=== PATIENT | female | born 1970 | race Caucasian/White ===

== ENCOUNTER 2021-09-17 13:35 | Emergency (ER) | payer OTHER, SELFPAY ==
[2021-09-17 13:40] VITALS: BP 137/79; PULSE 97; RESP 18; TEMP 36.9; O2SAT 97
[2021-09-17 13:51] VITALS: BP 137/79; PULSE 97; RESP 18; TEMP 36.9; O2SAT 97
--- NOTE | 2021-09-17 14:27 | ED.NECK ---
HPI - Neck Pain/Injury General Chief Complaint: Neck Pain/Injury Stated Complaint: right shoulder and neck pain Time Seen by Provider: 09/17/21 14:11 Source: patient and RN notes reviewed Mode of arrival: ambulatory Limitations: no limitations History of Present Illness HPI Narrative: Patient presents today complaining of severe right-sided neck and shoulder pain since yesterday. Denies injury or trauma. She does report history of chronic neck and right shoulder pain with, 5 pinched nerves in my neck. She also reports intermittent numbness to the shoulder. She has tried ibuprofen without relief. She currently rates her pain 7/10. Pain increases with any movement. Patient is diabetic and states her last A1c was 12 or 13. MD complaint: neck pain Related Data Home Medications Medication Instructions Recorded Confirmed alogliptin-metformin 1 tablet PO BID 05/29/19 09/17/21 fenofibrate nanocrystallized 145 mg PO DAILY 05/29/19 09/17/21 gabapentin 900 mg PO BID 05/29/19 09/17/21 hydrochlorothiazide 12.5 mg PO DAILY 05/29/19 09/17/21 hydroxyzine HCl 25 mg PO TID 05/29/19 09/17/21 glipizide 5 mg PO BID 09/17/21 09/17/21 pravastatin 40 mg PO DAILY 09/17/21 09/17/21 umeclidinium [Incruse Ellipta] 1 inh INHALATION DAILY 09/17/21 09/17/21 Allergies Allergy/AdvReac Type Severity Reaction Status Date / Time Penicillins Allergy Intermediate Anaphylactic Verified 09/17/21 13:48 Shock Review of Systems Review of Systems: CONSTITUTIONAL: Denies body aches, fever, chills, or sweats. EYES: Denies visual changes, redness, or discharge. ENT: Denies rhinorrhea, congestion, sore throat, or otalgia. CARDIOVASCULAR: Denies chest pain, palpitations, or edema. RESPIRATORY: Denies cough or dyspnea. GASTROINTESTINAL: Denies abdominal pain, nausea, vomiting, or diarrhea. GENITOURINARY: Denies dysuria or hematuria. SKIN: Denies rash, itching, or wounds. MUSCULOSKELETAL: + Right neck and shoulder pain NEUROLOGIC: Denies headache, tingling, or weakness.+ Intermittent right shoulder numbness PSYCH: Denies depression or anxiety. FOR[facility]LY [facility] Past Medical History Medical History (Updated 09/17/21 @ 14:36 by Cathy Weeks, [facility], ) Anxiety COPD (chronic obstructive pulmonary disease) Depression Diabetes High cholesterol Surgical History Surgical History (Updated 09/17/21 @ 14:32 by Cathy Weeks, [facility], ) H/O tubal ligation Comments At time of signature, I have reviewed and agree with nursing past medical, surgical, social and family history unless otherwise noted. Please see nursing chart for further information. There is no relevant family history pertinent to the presenting complaint Exam Narrative: GENERAL: Well-appearing, well-nourished, and in moderate pain distress. HEAD: Normocephalic, atraumatic. EYES: EOMI. No redness or drainage. Conjunctivae normal. ENT: Mucous membranes pink and moist. Nares clear. No rhinorrhea. TMs normal bilaterally. Throat normal. Uvula midline. NECK: Tenderness to the right paraspinal cervical musculature. Any range of motion of the neck causes pain to the right neck. Tenderness extends to the right trapezius laterally and down to the scapular border. Patient is tender generally throughout the shoulder as well. Any range of motion of the shoulder causes severe pain that also radiates back up to the neck. Distal sensation intact. Capillary refill normal. Radial pulse normal. 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 CHEST: No respiratory distress. EXTREMITIES: No edema. SKIN: Warm, dry, no rash. Capillary refill normal. Normal skin turgor. NEURO: No focal deficits. Alert and oriented x3. Gait steady. PSYCH: Normal affect. No signs of depression or anxiety. Course Course Level of Care: Express Care Visit Vital Signs Vital signs: Vital Signs Temperature 98.5 F 09/17/21 13:40 Pulse Rate 97 09/17/21 13:40 Respiratory Rate 18 09/17/21 13:40 Blood Pressure 137/79 09/17/21 13:
== END 2021-09-17 14:40 | disposition home or self-care (01) ==
PROVIDERS: Emergency Provider Nurse Practitioner; PCP Internal Medicine
DX: M54.12 Radiculopathy, cervical region (principal); M62.838 Other muscle spasm; J44.9 Chronic obstructive pulmonary disease, unspecified; E11.9 Type 2 diabetes mellitus without complications; E78.00 Pure hypercholesterolemia, unspecified; F41.9 Anxiety disorder, unspecified
CPT/HCPCS: 99213; G0463

== ENCOUNTER 2022-01-04 18:14 | Emergency (ER) | payer OTHER, SELFPAY ==
[2022-01-04 18:28] VITALS: BP 134/66; PULSE 94; RESP 16; TEMP 37.1; O2SAT 97
--- NOTE | 2022-01-04 19:27 | ED.EAR ---
HPI - Ear Problem General Chief complaint: Ear Stated complaint: painful ears Time Seen by Provider: 01/04/22 19:27 Source: patient, RN notes reviewed and old records reviewed Mode of arrival: ambulatory Limitations: no limitations History of Present Illness HPI Narrative: 51-year-old female who presents to [facility] care with complaints of bilateral ear pain for the past 2 days, Patient states that her ears are scratchy, reports that she had a pimple in her ear about a month ago in right ear. Patient describes discomfort as burning rates pain /10. Patient denies any fevers chills or sweats or body aches. Patient has had COVID vaccinations and flu shot. Patient has some scabs noted to the external ear canal of right ear. Patient reports that she has used peroxide to her ears and she has been taking Ibuprofen. MD Complaint: ear pain Treatment prior to arrival: other (peroxide and Ibuprofen) Related Data Home Medications Medication Instructions Recorded Confirmed hydrochlorothiazide 12.5 mg tablet 12.5 mg PO DAILY 05/29/19 01/04/22 umeclidinium 62.5 mcg/actuation 1 inh inhalation DAILY 09/17/21 01/04/22 blister powder for inhalation (Incruse Ellipta) fenofibrate nanocrystallized 145 145 mg PO DAILY 01/04/22 01/04/22 mg tablet fluoxetine 40 mg capsule 40 mg PO DAILY 01/04/22 01/04/22 glipizide 10 mg tablet 10 mg PO DAILY 01/04/22 01/04/22 linagliptin 5 mg tablet (Tradjenta) 5 mg PO QAM 01/04/22 01/04/22 metformin 1,000 mg tablet 1,000 mg PO BID 01/04/22 01/04/22 pioglitazone 30 mg tablet 30 mg PO DAILY 01/04/22 01/04/22 pravastatin 40 mg tablet 40 mg PO DAILY 01/04/22 01/04/22 Allergies Allergy/AdvReac Type Severity Reaction Status Date / Time Penicillins Allergy Intermediate Anaphylactic Verified 01/04/22 18:36 Shock Review of Systems Review of Systems: CONSTITUTIONAL: Denies fever, chills, or sweats. EYES: Denies visual changes, redness, or discharge. ENT: Denies rhinorrhea, congestion, sore throat positive for bilateral ear pain, no drainage CARDIOVASCULAR: Denies chest pain, palpitations, or edema. RESPIRATORY: Denies cough or dyspnea. GASTROINTESTINAL: Denies abdominal pain, nausea, vomiting, or diarrhea. GENITOURINARY: Denies dysuria or hematuria. SKIN: Denies rash or itching. MUSCULOSKELETAL: Denies back pain, joint pain, or myalgia. NEUROLOGIC: Denies headache, numbness, or weakness. PSYCHIATRIC: Positive for history of anxiety or depression. All systems reviewed & are unremarkable except as noted in HPI and below PMFSH Past Medical History Medical History (Updated 01/06/22 @ 21:03 by Kita Fatima NP) Anxiety COPD (chronic obstructive pulmonary disease) Depression Diabetes High cholesterol Surgical History Surgical History (Updated 01/04/22 @ 19:29 by Kita Fatima NP) H/O tubal ligation History of back surgery X2 Social History Social History (Updated 01/06/22 @ 20:59 by Kita Fatima NP) Smoking packs per day: 0.5 Smoking cigarettes per day: 10.0 Years smoked: 36 Smoking pack-years: 18.00 Smoking status: Current every day smoker Tobacco type: cigarettes Comments At time of signature, agree with nursing past medical, surgical, social and family history. There is no relevant family history pertinent to the presenting complaint Exam Narrative: GENERAL: Well-appearing, well-nourished, and in no acute distress. HEAD: Normocephalic, atraumatic. EYES: PERRLA and EOMI. ENT: Nares clear, no rhinorrhea or epistaxis. Mucous membranes moist.Bilateral TM's with redness, ear canals irritated and scabbed lesions noted to right ear canal at external opening, throat pink with no lesions or tonsil swelling. CHEST: Clear to auscultation. No respiratory distress.SAO2 97% on room air HEART: Regular rate and rhythm. No murmur heard. Normal peripheral pulses. ABDOMEN: Soft, nontender, nondistended, normal active bowel sounds. EXTREMITIES: Normal range of motion. No edema. S
== END 2022-01-04 19:44 | disposition home or self-care (01) ==
PROVIDERS: Emergency Provider Registered Nurse; PCP Internal Medicine
DX: H65.03 Acute serous otitis media, bilateral (principal); H60.393 Other infective otitis externa, bilateral; J44.9 Chronic obstructive pulmonary disease, unspecified; E11.9 Type 2 diabetes mellitus without complications; E78.00 Pure hypercholesterolemia, unspecified; F17.210 Nicotine dependence, cigarettes, uncomplicated; F41.9 Anxiety disorder, unspecified; F32.A Depression, unspecified
CPT/HCPCS: 99213; G0463

== ENCOUNTER 2022-10-07 12:59 | Emergency (ER) | payer OTHER, SELFPAY ==
--- NOTE | ~2022-10-07 | XR_ITS ---
XR hand LT min 3V 10/07/2022 13:16 INDICATION: Left hand pain PROCEDURE: 3 views left hand COMPARISON: No prior studies for comparison. FINDINGS: Fracture, dislocation or subluxation is not identified. Osteopenia. 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 The soft tissues appear within normal limits. No foreign bodies are identified. IMPRESSION: 1: NO ACUTE BONE OR JOINT ABNORMALITY IDENTIFIED. Reviewed, dictated and finalized at location A.
[2022-10-07 13:05] VITALS: BP 122/66; PULSE 82; RESP 22; TEMP 36.4; O2SAT 98
--- NOTE | 2022-10-07 14:27 | ED.GENADULT ---
HPI - General Adult General Chief complaint: Extremity Injury, Upper Stated complaint: Left Hand Injury Time Seen by Provider: 10/07/22 14:27 Source: patient, RN notes reviewed and old records reviewed Mode of arrival: ambulatory Limitations: no limitations History of Present Illness HPI narrative: 52 year old female presents to [facility] care with complaints of left hand pain since 2029 last night after shutting hand in car door. Patient reports that she has pain along the baseses of 3rd,4th and 5th fingers with bruising noted along marcelino aspect of hand with some swelling present. Patient does have full mobility of her hand and finger but with some discomfort.No acute deformity noted. Patient has applied ice and taken Ibuprofen for her discomfort. MD complaint: Left hand pain Onset (ago): day(s) (last evening) Severity scale (1-10): 9 Treatments prior to arrival: NSAID and cold therapy Related Data Home Medications Medication Instructions Recorded Confirmed hydrochlorothiazide 12.5 mg tablet 12.5 mg PO DAILY 05/29/19 01/04/22 umeclidinium 62.5 mcg/actuation 1 inh inhalation DAILY 09/17/21 01/04/22 blister powder for inhalation (Incruse Ellipta) fenofibrate nanocrystallized 145 145 mg PO DAILY 01/04/22 01/04/22 mg tablet fluoxetine 40 mg capsule 40 mg PO DAILY 01/04/22 01/04/22 glipizide 10 mg tablet 10 mg PO DAILY 01/04/22 01/04/22 linagliptin 5 mg tablet (Tradjenta) 5 mg PO QAM 01/04/22 01/04/22 metformin 1,000 mg tablet 1,000 mg PO BID 01/04/22 01/04/22 pioglitazone 30 mg tablet 30 mg PO DAILY 01/04/22 01/04/22 Allergies Allergy/AdvReac Type Severity Reaction Status Date / Time Penicillins Allergy Intermediate Anaphylactic Verified 01/04/22 18:36 Shock Review of Systems Review of Systems: CONSTITUTIONAL: Denies fever, chills, or sweats. EYES: Denies visual changes, redness, or discharge. ENT: Denies rhinorrhea, congestion, sore throat, or otalgia. CARDIOVASCULAR: Denies chest pain, palpitations, or edema. RESPIRATORY: Denies cough or dyspnea. GASTROINTESTINAL: Denies abdominal pain, nausea, vomiting, or diarrhea. GENITOURINARY: Denies dysuria or hematuria. SKIN: Denies rash or itching. MUSCULOSKELETAL: Denies acute back pain, positive pain to left hand , or myalgia. NEUROLOGIC: Denies headache, numbness, or weakness. PSYCHIATRIC: Denies anxiety or depression. All systems reviewed & are unremarkable except as noted in HPI and below PMFSH Past Medical History Medical History (Updated 10/09/22 @ 13:42 by Kita Fatima NP) Anxiety COPD (chronic obstructive pulmonary disease) Depression Diabetes High cholesterol Surgical History Surgical History (Updated 01/04/22 @ 19:29 by Kita Fatima NP) H/O tubal ligation History of back surgery X2 Social History Social History (Updated 01/06/22 @ 20:59 by Kita Fatima NP) Smoking packs per day: 0.5 Smoking cigarettes per day: 10.0 Years smoked: 36 Smoking pack-years: 18.00 Smoking status: Current every day smoker Tobacco type: cigarettes Comments At time of signature, agree with nursing past medical, surgical, social and family history. There is no relevant family history pertinent to the presenting complaint Exam Narrative: GENERAL: Well-appearing, well-nourished, and in no acute distress. HEAD: Normocephalic, atraumatic. EYES: PERRLA and EOMI. ENT: Nares clear, no rhinorrhea or epistaxis. Mucous membranes moist.TM's normal with good light reflex, throat pink with no lesions or swelling NECK: Supple.no lymphadenopathy CHEST: Clear to auscultation. No respiratory distress.SAO2 98% on room air HEART: Regular rate and rhythm. No murmur heard. Normal peripheral pulses. ABDOMEN: Soft, nontender, nondistended, normal active bowel sounds.nd, circulation and EXTREMITIES: Normal range of motion. No edema.Exception noted to marcelino aspect of left hand along base of 3rd, 4th and 5th finger bruising noted, Patient able to move all fin
== END 2022-10-07 14:42 | disposition home or self-care (01) ==
PROVIDERS: Emergency Provider Registered Nurse; PCP Internal Medicine
DX: S60.222A Contusion of left hand, initial encounter (principal); W23.0XXA Caught, crushed, jammed, or pinched between moving objects, initial encounter; E11.9 Type 2 diabetes mellitus without complications; J44.9 Chronic obstructive pulmonary disease, unspecified; E78.00 Pure hypercholesterolemia, unspecified; F17.210 Nicotine dependence, cigarettes, uncomplicated
CPT/HCPCS: 73130; 99213; G0463

== ENCOUNTER 2023-04-18 19:09 | Emergency (ER) | payer OTHER, SELFPAY ==
[2023-04-18 19:13] VITALS: BP 129/74; PULSE 82; RESP 16; TEMP 36.6; O2SAT 99
--- NOTE | 2023-04-18 19:49 | ED.URI ---
HPI - URI/Sore Throat General Chief Complaint: Upper Respiratory Infection Stated Complaint: Sore Throat/Mouth Sore Time Seen by Provider: 04/18/23 19:48 Source: patient and RN notes reviewed Mode of arrival: ambulatory Limitations: no limitations History of Present Illness HPI Narrative: 52-year-old female presents concern for sore throat. She reports nasal congestion, rhinorrhea for more than a week. She also reports cough, shortness of breath. She has history of COPD. She denies fever, aches, chills, sweats. She denies any [id number] intervention, she has been using her daily medications as prescribed. MD elicited complaint: cough, sore throat, rhinorrhea and nasal congestion Related Data Home Medications Medication Instructions Recorded Confirmed hydrochlorothiazide 12.5 mg tablet 12.5 mg PO DAILY 05/29/19 04/18/23 umeclidinium 62.5 mcg/actuation 1 inh inhalation DAILY 09/17/21 04/18/23 blister powder for inhalation (Incruse Ellipta) fenofibrate nanocrystallized 145 145 mg PO DAILY 01/04/22 04/18/23 mg tablet fluoxetine 40 mg capsule 40 mg PO DAILY 01/04/22 04/18/23 glipizide 10 mg tablet 10 mg PO DAILY 01/04/22 04/18/23 metformin 1,000 mg tablet 1,000 mg PO BID 01/04/22 04/18/23 pioglitazone 30 mg tablet 30 mg PO DAILY 01/04/22 04/18/23 albuterol sulfate 90 mcg/actuation 2 puff inhalation Q4-6H PRN 04/18/23 04/18/23 aerosol inhaler Shortness Of Breath Or Wheezing budesonide-formoterol HFA 160 1 puff inhalation DAILY 04/18/23 04/18/23 mcg-4.5 mcg/actuation aerosol inhaler (Symbicort) omeprazole 40 mg capsule,delayed 40 mg PO DAILY 04/18/23 04/18/23 release pravastatin 40 mg tablet 40 mg PO DAILY 04/18/23 04/18/23 Allergies Allergy/AdvReac Type Severity Reaction Status Date / Time Penicillins Allergy Intermediate Anaphylactic Verified 04/18/23 19:39 Shock Review of Systems Review of Systems: CONSTITUTIONAL: Denies malaise, chills, sweats, or fever. EYES: Denies visual changes, redness, or discharge. ENT: Reports rhinorrhea, congestion, sinus pain, and sore throat. CARDIOVASCULAR: Denies chest pain, palpitations, or edema. RESPIRATORY: Reports cough, dyspnea. GASTROINTESTINAL: Denies abdominal pain, nausea, vomiting, diarrhea SKIN: Denies rash or itching. MUSCULOSKELETAL: Denies myalgia. NEUROLOGIC: Denies headache. All systems reviewed & are unremarkable except as noted in HPI and below PMFSH Past Medical History Medical History (Updated 04/18/23 @ 19:55 by Melissa Ford NP) Anxiety COPD (chronic obstructive pulmonary disease) Depression Diabetes High cholesterol Surgical History Surgical History (Updated 01/04/22 @ 19:29 by Kita Fatima NP) H/O tubal ligation History of back surgery X2 Social History Social History (Updated 01/06/22 @ 20:59 by Kita Fatima NP) Smoking packs per day: 0.5 Smoking cigarettes per day: 10.0 Years smoked: 36 Smoking pack-years: 18.00 Smoking status: Current every day smoker Tobacco type: cigarettes Comments At time of signature, agree with nursing past medical, surgical, social and family history. There is no relevant family history pertinent to the presenting complaint Exam Narrative: GENERAL: Nontoxic-appearing and in no acute distress. HEAD: Normocephalic EYES: PERRLA, conjunctivae clear ENT: Nares clear, turbinates edematous and erythematous, clear discharge. Mucous membranes moist. TM pearly arthur with dull light reflex bilaterally; no tragal tenderness. Oropharynx not erythematous without lesions. Tonsils not enlarged and without exudate, no drooling, no hoarseness, no trismus, uvula midline. NECK: Supple. No lymphadenopathy CHEST: Scattered wheeze, otherwise clear to auscultation, breath sounds equal. No rhonchi, rales, or stridor. No respiratory distress, speaks in full sentences. HEART: Regular rate and rhythm. No murmur heard. SKIN: Warm, dry, no rash. NEURO: Alert and oriented x3. PSY
== END 2023-04-18 20:05 | disposition home or self-care (01) ==
PROVIDERS: Emergency Provider Nurse Practitioner
DX: J44.1 Chronic obstructive pulmonary disease with (acute) exacerbation (principal); F17.210 Nicotine dependence, cigarettes, uncomplicated; Z79.899 Other long term (current) drug therapy; Z79.84 Long term (current) use of oral hypoglycemic drugs
CPT/HCPCS: 87081; 87880; 99213; G0463